=== PATIENT | female | born 1970 | race Hispanic/Latino ===

== ENCOUNTER 2021-09-24 23:16 | Emergency (ER) | payer OTHER ==
[~2021-09-24] VITALS: Ht 157.5 cm; Wt 78.0 kg
[2021-09-24 23:34] LABS: APPEARANCE,URINE Cloudy (CLEAR); BILIRUBIN,URINE Negative (NEGATIVE); COLOR,URINE Orange (YELLOW); GLUCOSE, URINE (UA) Negative (NEGATIVE); KETONES,URINE Negative (NEGATIVE); LEUKOCYTE ESTERASE ,URINE Large (NEGATIVE); NITRATE,URINE Negative (NEGATIVE); OCCULT BLOOD,URINE Large (NEGATIVE); PH,URINE 5.5 (5.0-8.0); PROTEIN,URINE 300 mg/dL (NEGATIVE); UROBILINOGEN,URINE 0.2 mg/dL (0.2-1.0)
[2021-09-24 23:39] VITALS: BP 136/86
[2021-09-24 23:44] LABS: BACTERIA,URINE Few /HPF (None Seen); RBC,URINE 26-50 /HPF (0-1); WBC,URINE 26-50 /HPF (0-1)
[2021-09-24] MEDS ORDERED: CIPR-278 PO (23:53)
[2021-09-24] MEDS ORDERED: PHEN-847 PO (23:53)
[2021-09-25] MEDS ORDERED: PHENAZOPYRIDINE HCL 200 MG TABLET PO ONE
[2021-09-25] MEDS ORDERED: LEVOFLOXACIN 500 MG TABLET PO SCH
[2021-09-25] MEDS ORDERED: LEVOFLOXACIN 500 MG TABLET ONE (00:02)
[2021-09-25] MEDS ORDERED: PHENAZOPYRIDINE HCL 200 MG TABLET ONE (00:03)
== END 2021-09-25 00:15 | disposition home or self-care (01) ==
LOC: EDH 23:16
DX: N30.01 Acute cystitis with hematuria (principal); Z90.710 Acquired absence of both cervix and uterus
CPT/HCPCS: 81001; 87088

== ENCOUNTER 2024-08-24 10:00 | Inpatient (IN) | payer OTHER ==
[~2024-08-24] VITALS: Ht 157.5 cm; Wt 78.8 kg
[2024-08-24 11:05] LABS: BASOPHILS # (AUTO) 0.01 K/uL (0.00-0.20); BASOPHILS % (AUTO) 0.3 % (0.0-5.0); EOSINOPHILS # (AUTO) 0.06 K/uL (0.00-0.70); EOSINOPHILS % (AUTO) 1.6 % (0.0-8.0); HEMATOCRIT 45.3 % (36-48); IMMATURE GRANULOCYTE ABSOLUTE 0.02 K/uL (0-1); LYMPHOCYTES # (AUTO) 1.4 K/uL (1.0-4.8); LYMPHOCYTES % (AUTO) 35.7 % (21.0-51.0); MEAN CORPUSCULAR HEMOGLOBIN 29.7 pg (27.0-33.0); MEAN CORPUSCULAR HGB CONC 32.5 g/dL (32.0-36.0); MEAN CORPUSCULAR VOLUME 91.5 fL (79-99); MONOCYTES # (AUTO) 0.4 K/uL (0.1-1.0); MONOCYTES % (AUTO) 9.6 % (3.0-13.0); NEUTROPHILS % (AUTO) 52.3 % (40.0-77.0); PLATELET COUNT (AUTO) 241 K/uL (130-400); RED BLOOD CELL COUNT(AUTO) 4.95 MIL/uL (4.00-5.50); RED CELL DISTRIBUTION WIDTH 13.9 % (11.0-15.5); WHITE BLOOD COUNT (AUTO) 3.9 K/uL (4.8-10.8)
[2024-08-24 11:08] VITALS: BP 127/63; PULSE 83; RESP 18; TEMP 97.3
[2024-08-24 11:18] LABS: ALBUMIN 4.1 g/dL (3.5-5.0); BILIRUBIN,TOTAL 1.2 mg/dL (0.2-1.0); POTASSIUM 4.1 mmol/L (3.5-5.1); TOTAL PROTEIN, SERUM 7.4 g/dL (6.0-8.3)
[2024-08-24] MEDS ORDERED: MVI PO (11:26)
[2024-08-24 11:42] LABS: INR 0.98 (0.85-1.15); PROTHROMBIN TIME 10.6 SEC (9.6-11.6)
[2024-08-24 11:43] LABS: PARTIAL THROMBOPLASTIN TIME 28.6 SEC (26.3-35.5)
[2024-08-28] VITALS (25 sets, daily range): BP systolic 102–148; BP diastolic 65–103; PULSE 79–129; RESP 12–19; TEMP 96.7–98.1
[2024-08-28] MEDS ORDERED: BUPIvacaine/PF 0.5% 30ML VIAL ONE (07:42)
[2024-08-28] MEDS: LACTATED RINGERS 1000ML 1,000 ML IV ONE (07:55)
[2024-08-28] MEDS: MEROPENEM 1 GM VIAL ONE (07:56)
[2024-08-28] MEDS ORDERED: MIDAZOLAM HCL 1 MG/ML 2ML VIAL ONE (08:16)
[2024-08-28] MEDS ORDERED: FENTanyl CITRate PF 50 MCG/1 ML 2ML VIAL ONE ×3 (08:26→11:19)
[2024-08-28] MEDS ORDERED: LIDOCAINE PF 100MG/5ML (2%) SYRINGE 5ML ONE (08:26)
[2024-08-28] MEDS ORDERED: proPOFol 10 MG/ML 20ML VIAL IV ONE (08:26)
[2024-08-28] MEDS ORDERED: SUCCINYLCHOLINE CHLORIDE 20 MG/ML 10 ML VIAL ONE (08:26)
[2024-08-28] MEDS ORDERED: rocuRONium bROMide 10MG/1ML 5ML VL ONE (08:26)
[2024-08-28] MEDS: LIDOCAINE 1%-EPI 1:100,000 20 ML VIAL ONE (08:54)
[2024-08-28] MEDS: BUPIvacaine/PF 0.25% 30ML VIAL IJ ONE (08:54)
[2024-08-28] MEDS ORDERED: FENTanyl CITRate PF 50 MCG/1 ML 5ML AMP IV ONE (08:54)
[2024-08-28] MEDS ORDERED: dexaMETHasone SOD PHOSPHATE 10MG/ML 1ML VIAL ONE (08:59)
[2024-08-28] MEDS: INDOCYANINE GREEN 25 MG VIAL IJ ONE (10:29)
[2024-08-28] MEDS ORDERED: NEOSTIGMINE METHYLSULFATE 1MG/ML IV ONE (11:33)
[2024-08-28] MEDS ORDERED: GLYCOPYRROLATE 0.2 MG/ML 5 ML VIAL ONE (11:34)
[2024-08-28] MEDS: acetaMINOPHEN 100 ML ONE (11:34)
[2024-08-28] MEDS: MEPERIDINE-PF 25 MG/ML SYG ONE (12:29)
[2024-08-28] MEDS: D5W-1/2 NS/20MEQ KCL 1,000 ML IV SCH (14:20)
[2024-08-28] MEDS: HEParin 5,000 UNIT VIAL SQ SCH (14:28)
[2024-08-28] MEDS: acetaMINOPHEN 325 MG TAB PO PRN (17:21)
[2024-08-28] MEDS: ondanSETRON 4MG INJ IVP PRN (18:08)
[2024-08-28] MEDS: morPHINE 4 MG SYG IV PRN (20:03)
[2024-08-29 04:16] VITALS: BP 125/89; PULSE 90; RESP 18; TEMP 98.3
[2024-08-29 04:50] LABS: BASOPHILS # (AUTO) 0.01 K/uL (0.00-0.20); BASOPHILS % (AUTO) 0.1 % (0.0-5.0); HEMATOCRIT 43.5 % (36-48); IMMATURE GRANULOCYTE ABSOLUTE 0.02 K/uL (0-1); LYMPHOCYTES % (AUTO) 12.5 % (21.0-51.0); MEAN CORPUSCULAR HEMOGLOBIN 29.4 pg (27.0-33.0); MEAN CORPUSCULAR HGB CONC 32.4 g/dL (32.0-36.0); MEAN CORPUSCULAR VOLUME 90.6 fL (79-99); MONOCYTES % (AUTO) 13.3 % (3.0-13.0); NEUTROPHILS # (AUTO) 5.8 K/uL (1.8-7.7); NEUTROPHILS % (AUTO) 73.8 % (40.0-77.0); PLATELET COUNT (AUTO) 246 K/uL (130-400); RED CELL DISTRIBUTION WIDTH 13.5 % (11.0-15.5); WHITE BLOOD COUNT (AUTO) 7.8 K/uL (4.8-10.8)
[2024-08-29 05:04] LABS: CREATININE 0.8 mg/dL (0.5-1.0); POTASSIUM 5.3 mmol/L (3.5-5.1)
[2024-08-29 08:00] VITALS: BP 115/70; PULSE 75; RESP 16; TEMP 98.6; O2SAT 98
[2024-08-29 12:00] VITALS: BP 122/72; PULSE 78; RESP 16; TEMP 98.1
[2024-08-29 16:00] VITALS: BP 118/73; PULSE 87; RESP 16; TEMP 97.8
[2024-08-29 20:19] VITALS: BP 132/81; PULSE 91; RESP 19; TEMP 98.2
[2024-08-30 00:14] VITALS: BP 111/71; PULSE 79; RESP 18; TEMP 98.1
[2024-08-30 04:06] VITALS: BP 117/81; PULSE 91; RESP 18; TEMP 98.4
[2024-08-30 04:39] LABS: BASOPHILS # (AUTO) 0.01 K/uL (0.00-0.20); BASOPHILS % (AUTO) 0.2 % (0.0-5.0); EOSINOPHILS # (AUTO) 0.02 K/uL (0.00-0.70); EOSINOPHILS % (AUTO) 0.3 % (0.0-8.0); HEMATOCRIT 43.9 % (36-48); IMMATURE GRANULOCYTE ABSOLUTE 0.02 K/uL (0-1); LYMPHOCYTES # (AUTO) 1.8 K/uL (1.0-4.8); LYMPHOCYTES % (AUTO) 29.7 % (21.0-51.0); MEAN CORPUSCULAR HEMOGLOBIN 29.7 pg (27.0-33.0); MEAN CORPUSCULAR HGB CONC 32.1 g/dL (32.0-36.0); MEAN CORPUSCULAR VOLUME 92.4 fL (79-99); MONOCYTES # (AUTO) 0.6 K/uL (0.1-1.0); MONOCYTES % (AUTO) 10.3 % (3.0-13.0); NEUTROPHILS # (AUTO) 3.5 K/uL (1.8-7.7); NEUTROPHILS % (AUTO) 59.2 % (40.0-77.0); PLATELET COUNT (AUTO) 210 K/uL (130-400); RED BLOOD CELL COUNT(AUTO) 4.75 MIL/uL (4.00-5.50); RED CELL DISTRIBUTION WIDTH 13.9 % (11.0-15.5); WHITE BLOOD COUNT (AUTO) 5.9 K/uL (4.8-10.8)
[2024-08-30 05:00] LABS: CREATININE 0.9 mg/dL (0.5-1.0); POTASSIUM 3.7 mmol/L (3.5-5.1)
[2024-08-30 07:45] VITALS: BP 113/79; PULSE 88; RESP 20; TEMP 98.3
[2024-08-30 08:10] VITALS: O2SAT 100
[2024-08-30] MEDS: HYDROcodone/APAP 5/325 1 TAB TABLET PO PRN (09:41)
[2024-08-30 11:30] VITALS: BP 112/76; PULSE 80; RESP 16; TEMP 98.3
== END 2024-08-30 13:00 | disposition home or self-care (01) | DRG 331 ==
LOC: DAHIP 08-28 06:49 → 4BH 08-28 13:05
PROVIDERS: ADMIT Surgery; ATTEND Surgery
PROC: 8E0W4CZ Robotic Assisted Procedure of Trunk Region, Percutaneous Endoscopic Approach (ICD-10-PCS; 2024-08-28)
PROC: 0DXU4ZW Transfer Omentum to Abdominal Region, Percutaneous Endoscopic Approach (ICD-10-PCS; 2024-08-28)
PROC: 0DTF4ZZ Resection of Right Large Intestine, Percutaneous Endoscopic Approach (ICD-10-PCS; principal; 2024-08-28 08:22)
DX: D12.0 Benign neoplasm of cecum (principal); K21.9 Gastro-esophageal reflux disease without esophagitis; B96.81 Helicobacter pylori [H. pylori] as the cause of diseases classified elsewhere; Z86.0101 Personal history of adenomatous and serrated colon polyps; Z86.19 Personal history of other infectious and parasitic diseases
CPT/HCPCS: 36415; 80048; 80053; 85025; 85610; 85730; 86850; 86900; 86901; 93005; A4344; G0378; J0330; J1100; J1644; J2003; J2175; J2185; J2250; J2270; J2405; J2704; J2710; J3010; J3480; J3490; J7120; A4215; A4216; A4221; A4222; A4223; A4600; A4649; A4663; A4930; A6260; C1769; J0665

== ENCOUNTER 2024-09-19 09:12 | Emergency (ER) | payer OTHER ==
[~2024-09-19] VITALS: Ht 152.4 cm; Wt 76.2 kg
[~2024-09-19 09:12] MED LIST: MVI PO
--- NOTE | 2024-09-19 09:25 | ERN ---
General Chief Complaint: Post-Op Problem Stated Complaint: LLQ PAIN, POST OP SX 08/28/24 Time Seen by MD: 09:15 Source: patient History of Present Illness Initial Comments Patient is a 53-year-old female coming in to be evaluated for lower abdominal discomfort. Patient states that she has been having superficial discomfort and was seen by her PCP wanted to be evaluated if that was a hematoma or abscess. Allergies: Coded Allergies: No Known Drug Allergies (Unverified Allergy, Unknown, 11/22/17) Home Meds Reported Medications [Mvi] No Conflict Check, 1 TAB PO DAILY 08/24/24 Past Medical History Past Medical History: No Pertinent History Past Surgical History: Hysterectomy, Other, Social History Social History: ETOH ROS Dictation CONSTITUTIONAL: No chills, no fever, no weakness, no diaphoresis, no malaise. HEAD/FACE: No signs of trauma. EENT: No eye pain, no blurred vision, no tearing, no double vision, no ear pain, no ear discharge, no nose pain, no nasal congestion, no throat pain, no throat swelling, no mouth pain. RESPIRATORY: No cough, no orthopnea, no SOB, no stridor, no wheezing. CARDIOVASCULAR: No chest pain, no edema, no palpitations, no syncope. GASTROINTESTINAL/ABDOMINAL: No abdominal pain, no constipation, no diarrhea, no nausea, no vomiting. GENITOURINARY: No abnormal discharge, no dysuria, no frequent urination, no hematuria. No complaints of pain in the genitals. MUSCULOSKELETAL: No back pain, no gout, no joint pain, no joint swelling, no muscle pain, no muscle stiffness, no neck pain. INTEGUMENTARY: No change in color, no change in hair/nails, no dryness, no lesion, no lumps, no rash. NEUROLOGICAL/PSYCH: No anxiety, not depressed, no emotional problem, no headache, no numbness, no pre-existing deficit, no history of seizures, no tremors, no weakness. HEMATOLOGIC/LYMPHATIC: Not anemic, no history of blood clots, no apparent bleeding, no bruising, glands not swollen. All Systems Negative, Except as Noted. Physical Exam Physical Exam Dictation VITAL SIGNS: Reviewed. GENERAL APPEARANCE: Alert, oriented x3, no acute distress, obese. HEAD AND FACE: Non-traumatic. EYES: PERRL, pink conjunctivas, eyelid no trauma, anterior chamber clear. EARS: Pinnas intact and no signs of trauma or erythema. Ear canals clear and no discharge. TMs no erythema. NOSE: No discharge, no bleeding. OROPHARYNX: Mouth normal, teeth no caries, tongue pink. Pharynx clear, no erythema. Tonsils no exudates, no abscesses noted. Mucous membrane moist. NECK: Supple, non-tender, no thyromegaly, no masses, no JVD, no bruits. BREAST: Deferred. CHEST: No tenderness, no crepitus, no paradoxical movement, no retractions. LUNGS: Clear, well-ventilated, symmetric, no rales, no wheezing, no rhonchi, no stridor, good breath sounds bilaterally. HEART: Regular rate, regular rhythm, no murmur, no gallops. VASCULAR: No peripheral edema. ABDOMEN: Soft, positive bowel sounds, nondistended, no guarding, nontender, no r ebound, no masses no hepatomegaly, no splenomegaly, no Castellanos's sign, no hernias. RECTAL: Deferred. GENITAL: Deferred. NEUROLOGICAL: Normal speech, gross motor function intact, gross sensory function intact. MUSCULOSKELETAL: Neck nontender, full range of motion, BACK UNABLE TO PINPOINT PAIN BUT PATIENT STATES IT IS MORE OF A SORENESS. EXTREMITIES: Nontender, full range of motion. SKIN: Color pink, dry, no turgor, no rash, no lacerations, no abrasions, no contusions. LYMPHATICS: Deferred. Results Laboratory and Microbiology Lab and Micro Result Laboratory Tests Test 09/19/24 11:18 Urine Color LIGHT-YELLOW (YELLOW) Urine Appearance CLEAR (CLEAR) Urine pH 6.5 (5.0-8.0) Urine Specific Jansen 1.022 (1.001-1.031) Urine Protein NEGATIVE mg/dL (NEGATIVE) Urine Glucose (UA) NEGATIVE mg/dL (NEGATIVE) Urine Ketones NEGATIVE mg/dL (NEGATIVE) Urine Occult Blood NEGATIVE (NEGATIVE) Urine Nitrate NEGATIVE (NEGATIVE) Urine Bilirubin NEGATIVE mg/dL (NEGATIVE) Urine Urobilinogen 0.2 mg/dL (0.2-1.0) Urine Leukocyte Esterase NEGATIVE Chandrakant/uL Urine RBC 0-1 /HPF (0-1) Urine WBC 0-1 /HPF (0-1) Urine Squamous Epithelial Cells RARE /HPF (0-2) Urine Bacteria RARE /HPF (None Seen) Labs Reviewed?: Yes EKG/XRAY/US/CT/MRI Ultrasound Comment [facility] [address] [place] [address] IMAGING REPORT Signed PATIENT: JULIO BERNARD MR#: [id number] : 1970 SEX: F AGE: 53 LOCATION: [facility] ORDER 9 STATUS: REG ER REPORT#: [id number] SERVICE 8 REASON: left lower abd wall pain, post surgical ORDERING PHYSICIAN: SENAIT ERNST MD PROCEDURE: ABD WALL - US ABD LIMITED/ABD WALL US ABD LIMITED/ABD WALL REASON: left lower abd wall pain, post surgical. COMPARISON: None TECHNIQUE: Left lower abdominal ultrasound study was performed. FINDINGS: Patient is status post surgery. No sonographic evidence of abnormal fluid collection or mass lesion is seen. No sonographic evidence of hematoma or seroma is seen . IMPRESSION: Findings as described above. DICTATED BY: CALVIN QUINTERO MD DATE: 09/19/24 1049 ELECTRONICALLY SIGNED BY: CALVIN QUINTERO MD DATE: 09/19/24 1053 MDM MDM: DIFFERENTIAL DIAGNOSIS: POSTOP EVALUATION, WOUND EVALUATION, LUMBAR STRAIN PATIENT IS A 53-YEAR-OLD FEMALE COMING IN TO BE EVALUATED FOR ABDOMINAL DISCOMFORT. PATIENT BELIEVES SHE MIGHT HAVE HURT HER SURGICAL PROCEDURE IN HIS HERE FOR EVALUATION OF AN ABSCESS OR BLEED. ULTRASOUND DID NOT DISCLOSE ACUTE FINDINGS ON THE ANTERIOR ABDOMINAL REGION. PATIENT ALSO STATES THAT SHE HAS BEEN HAVING LOWER BACK PAIN FOR A COUPLE OF WEEKS EVER SINCE SHE COUGHED AND STRAINED HER BACK MUSCLES. ON PHYSICAL EXAM THERE IS NO PINPOINT DISCOMFORT FOUND. PATIENT WILL BE DISCHARGED WITH A DIAGNOSIS OF LUMBAR STRAIN MEDICATION WILL BE PROVIDED. I ADVISED HER APPROPRIATE FOLLOW UP WITH PCP IN 1-2 DAYS ED Course Orders Procedure Category Date Status Time Urinalysis LAB 09/19/24 Complete W/Microscopic 09:19 Us Abd Limited/Abd US 09/19/24 Resulted Wall 09:19 Acetaminophen 500mg PHA 09/19/24 Complete Tab (Tylenol 500mg T 09:30 Ketorolac PHA 09/19/24 In Process Tromethamine 30mg/Ml 12:30 Current Medications Medications (Trade) Dose Ordered Sig/Malik Route PRN Reason Start Time Stop Time Status Last Admin Dose Admin Acetaminophen (TYLenol 500MG TAB) 1,000 mg ONCE ONCE PO 09/19/24 09:30 09/19/24 09:31 DC 09/19/24 11:27 Ketorolac Tromethamine (toRADol) 30 mg ONCE ONCE IM 09/19/24 12:30 09/19/24 12:31 Vital Signs Date Time Temp Pulse Resp B/P (MAP) Pulse Ox O2 Delivery O2 Flow Rate FiO2 09/19/24 11:21 97.9 73 16 115/76 99 Room Air* 0 21 09/19/24 09:14 97.9 75 16 118/76 99 Room Air 0 DX & DISP Disposition: Discharge Departure Impression: Primary Impression: Lumbar strain Additional Impression: Encounter for evaluation of wound Condition: Stable Scripts Naproxen (Naproxen) 375 Mg Tablet. 375 MG PO BID for 10 Days, #20 TAB Prov: SENAIT ERNST MD 09/19/24 Additional Instructions: FOLLOW-UP WITH PRIMARY CARE PROVIDER IN 1 TO 2 DAYS. TAKE MEDICATIONS DIRECTED HERE IN THE EMERGENCY ROOM. OKAY TO CONTINUE HOME MEDICATIONS UNLESS OTHERWISE DISCUSSED DURING YOUR VISIT IN THE EMERGENCY ROOM TODAY. RETURN TO YOUR NEAREST EMERGENCY ROOM IF SYMPTOMS WORSEN OR IF THERE IS NO IMPROVEMENT. CALL 911 IF YOU NEED IMMEDIATE ASSISTANCE. TAKE TYLENOL [id number]-[id number] NEEDED AND IF NO CONTRAINDICATIONS ARE PRESENT. INCREASE ORAL HYDRATION. A WOUND CULTURE OR URINE CULTURE WAS ORDERED HERE IN THE EMERGENCY ROOM DEPARTMENT PLEASE FOLLOW-UP WITH PRIMARY CARE PROVIDER AND ADVISE THEM TO GET REPEAT PORTS FROM OUR FACILITY. IF YOU HAD ANY LUCY WRAP/SPLINTS THAT WERE APPLIED HERE, PLEASE DO NOT REMOVE THEM UNTIL YOU SEE YOUR PRIMARY CARE OR SPECIALTY. REFERRALS: Referrals: MAYA LÓPEZ MD (PCP) Time of Disposition: 12:06 SENAIT ERNST MD Sep 19, 2024 09:25
--- NOTE | 2024-09-19 10:53 | HMCIMG ---
US ABD LIMITED/ABD WALL REASON: left lower abd wall pain, post surgical. COMPARISON: None TECHNIQUE: Left lower abdominal ultrasound study was performed. FINDINGS: Patient is status post surgery. No sonographic evidence of abnormal fluid collection or mass lesion is seen. No sonographic evidence of hematoma or seroma is seen . IMPRESSION: Findings as described above.
[2024-09-19 11:21] VITALS: BP 115/76; PULSE 73; RESP 16; TEMP 97.8; O2SAT 99
[2024-09-19] MEDS: acetaMINOPHEN 500 MG TABLET PO ONE (11:27)
--- NOTE | 2024-09-19 11:28 | NUR ---
PT REFUSED TYLONOL AFTER MEDICATION SCANNED SHE DECIDED NOT TO TAKE IT
[2024-09-19 11:43] LABS: APPEARANCE,URINE CLEAR (CLEAR); BILIRUBIN,URINE NEGATIVE (NEGATIVE); COLOR,URINE LIGHT-YELLOW (YELLOW); GLUCOSE, URINE (UA) NEGATIVE (NEGATIVE); KETONES,URINE NEGATIVE (NEGATIVE); LEUKOCYTE ESTERASE ,URINE NEGATIVE Leu/uL (NEGATIVE); NITRATE,URINE NEGATIVE (NEGATIVE); OCCULT BLOOD,URINE NEGATIVE (NEGATIVE); PH,URINE 6.5 (5.0-8.0); PROTEIN,URINE NEGATIVE (NEGATIVE); UROBILINOGEN,URINE 0.2 mg/dL (0.2-1.0)
[2024-09-19 11:54] LABS: BACTERIA,URINE RARE /HPF (None Seen); MUCUS,URINE RARE LPF (None Seen); RBC,URINE 0-1 /HPF (0-1); SQUAMOUS EPITHELIAL CELL,UR RARE /HPF (0-2); WBC,URINE 0-1 /HPF (0-1)
[2024-09-19] MEDS ORDERED: NAPR-1505 PO (12:07)
[2024-09-19] MEDS: ketOROlac 30MG VIAL (30MG/ML) IM ONE (12:19)
== END 2024-09-19 12:30 | disposition home or self-care (01) ==
LOC: EDH 09:12
DX: S39.012A Strain of muscle, fascia and tendon of lower back, initial encounter (principal); Z90.710 Acquired absence of both cervix and uterus; X58.XXXA Exposure to other specified factors, initial encounter; Y93.89 Activity, other specified; Y92.89 Other specified places as the place of occurrence of the external cause; Y99.8 Other external cause status
CPT/HCPCS: 99285; 76705; 81001; 96372; J1885